=== PATIENT | male | born 2000 | race Caucasian/White ===

== ENCOUNTER 2020-08-25 20:47 | Emergency (ER) | payer OTHER, SELFPAY ==
[2020-08-25 20:49] VITALS: BP 147/72; PULSE 71; RESP 18; TEMP 36.6; O2SAT 98
--- NOTE | 2020-08-25 21:14 | ECG_ITS ---
Measurements Intervals [place] Rate: 75 P: 71 OR: 142 QRS: 97 QRSD: 101 T: 29 QT: 356 QTc: 399 Interpretive Statements SINUS RHYTHM WITH SINUS ARRHYTHMIA RIGHT AXIS DEVIATION BORDERLINE ST-T WAVE ABNORMALITY- INFERIOR LEADS BASELINE ARTIFACT- II, III, AVF BORDERLINE ECG Electronically Signed On 08-26-2020 7:11:47 [employer] [employer]ER by Jesse Greenfield D.O.
--- NOTE | 2020-08-25 21:15 | ED.ARRPALP ---
HPI - Arrhythmia/Palpitations General Chief Complaint: Arrhythmia/Palpitations Stated Complaint: Palpitations Time Seen by Provider: 08/25/20 20:59 Source: patient and family Mode of arrival: ambulatory Limitations: no limitations History of Present Illness HPI narrative: This patient is a 20 year old male who presents for evaluation of palpitations. Patient reports he has been having palpitations for 2-3 days. He describes a feeling of his heart pounding. Initially this was intermittently, but he reports over the past 5 hours it has been constant. He denies having the palpitations currently. He denies associated heart racing, chest pain, shortness or breath or dizziness. He also denies any other complaints. He started taking cipro 7 days ago for a foot infection but he stopped taking it 3 days ago. Related Data Home Medications Medication Instructions Recorded Confirmed dexlansoprazole [Dexilant] mg 08/25/20 Allergies Allergy/AdvReac Type Severity Reaction Status Date / Time No Known Allergies Allergy Verified 08/25/20 20:55 Review of Systems Review of Systems: All systems reviewed & are unremarkable except as noted in HPI and below Constitutional: Constitutional: Denies chills and Denies fever(s) Cardiovascular: Cardiovascular: Denies chest pain, Denies rapid heart rate and Denies radiating jaw, neck or arm pain Respiratory: Respiratory: Denies cough and Denies dyspnea Gastrointestinal: Gastrointestinal: Denies abdominal pain, Denies diarrhea, Denies nausea and Denies vomiting Neurologic: Denies headache(s) PMFSH Past Medical History Medical History (Updated 08/25/20 @ 22:59 by Yani Lyman MD) GERD (gastroesophageal reflux disease) Social History Social History (Updated 08/25/20 @ 21:19 by Yani Lyman MD) Smoking status: Never smoker Alcohol use details: occasionally Substance use: never Gender identity (if verbalized by the patient): Male Exam Narrative: Exam Narrative: GENERAL: Well-appearing, well-nourished, and in no acute distress. HEAD: Normocephalic, atraumatic EYES: PERRLA and EOMI, conjunctiva clear without discharge THROAT:Mucous membranes moist, Oropharynx normal without erythema, exudate, peritonsillar swelling or fluctuance NECK: Supple RESPIRATORY: No respiratory distress, Airway patent, Respirations non-labored, Clear to auscultation without rales, rhonchi or wheeze HEART: Regular rate and rhythm. No murmur heard. Normal peripheral pulses. ABDOMEN: Soft, nontender, nondistended, normal active bowel sounds. No masses. No rebound or guarding, No organomegaly. EXTREMITIES: No edema, normal strength with full range of motion. SKIN: Warm, dry, normal color without rash NEURO: Alert and oriented x3. CN 2-12 grossly intact. No focal deficits. PSYCH: Normal mood and affect. Course Reevaluation(s) Reevaluation #1: I discussed with patient and his mother that he will need to follow up with primary care physician for further evaluation. TSH is on high normal. Date: 08/25/20 Time: 22:57 Vital Signs Vital signs: Vital Signs Temperature 97.8 F 08/25/20 20:49 Pulse Rate 71 08/25/20 20:49 Respiratory Rate 18 08/25/20 20:49 Blood Pressure 147/72 H 08/25/20 20:49 Pulse Oximetry 98 08/25/20 20:49 Temperature 97.8 F 08/25/20 20:49 Pulse Rate 67 08/25/20 22:46 Respiratory Rate 18 08/25/20 22:46 Blood Pressure 127/72 08/25/20 22:46 Pulse Oximetry 97 08/25/20 22:46 MDM - Arrhythmia/Palpitations Lab Data Attestation: I reviewed the patient's lab results. Result diagrams: 08/25/20 21:25 08/25/20 21:24 Labs: Lab Results 08/25/20 08/25/20 08/25/20 Range/Units 21:24 21:25 21:25 WBC 8.8 (4.5-10.0) K/mm3 RBC 5.10 (4.6-6.20) M/mm3 Hgb 15.6 (14.0-18.0) g/dL Hct 45.0 (42.0-52.0) % MCV 88.2 (80-100) fl MCH 30.6 (26-34) pg MCHC 34.7 (32-36) g
[2020-08-25 21:31] LABS: Basophils Absolute Auto 0.1 K/mm3 (0.0-0.1); Basophils Percent Auto 0.7 % (0.2-1.2); Eosinophils Absolute Auto 0.2 K/mm3 (0-0.3); Eosinophils Percent Auto 2.3 % (0-4.4); Hemoglobin 15.6 g/dL (14.0-18.0); Immature Granulocyte Absolute 0.06 K/mm3 (0.00-0.031); Immature Granulocyte Percent A 0.7 % (0-0.5); Lymphocytes Absolute Auto 2.58 K/mm3 (0.9-3.2); Lymphocytes Percent Auto 29.4 % (18.3-44.2); Mean Corpuscular HGB Conc 34.7 g/dl (32-36); Mean Corpuscular Hemoglobin 30.6 pg (26-34); Mean Corpuscular Volume 88.2 fl (80-100); Mean Platelet Volume 9.7 fl (7.4-10.4); Monocytes Absolute Auto 0.6 K/mm3 (0.1-0.6); Monocytes Percent Auto 7.1 % (2.6-8.5); Neutrophils Absolute Auto 5.3 K/mm3 (1.3-6.7); Neutrophils Percent Auto 59.8 % (45.5-73.1); Platelet Count Result 263 k/mm3 (150-375); Red Cell Distribution Width 12.7 % (11.5-14.5); White Blood Count 8.8 K/mm3 (4.5-10.0)
[2020-08-25 21:44] LABS: Alanine Aminotransferase 21 U/L (4-50); Albumin Level 4.6 g/dL (3.5-5.1); Alkaline Phosphatase 66 U/L (38-126); Anion Gap 8 mmol/L (8-16); Aspartate Amino Transferase 28 U/L (17-59); Bilirubin,Total 0.6 mg/dL (0.2-1.3); Blood Urea Nitrogen 13 mg/dL (9-20); Calcium 9.4 mg/dL (8.4-10.2); Carbon Dioxide 30 mmol/L (22-30); Chloride 105 mmol/L (98-107); Estimated CRCL calculation 118 ml/min; Estimated Glomerular Filt Rate > 60; Glucose 103 mg/dL (75-110); Sodium 143 mmol/L (137-145)
[2020-08-25 21:44] LABS: Magnesium 1.8 mg/dL (1.6-2.3)
[2020-08-25 22:46] VITALS: BP 127/72; PULSE 67; RESP 18; O2SAT 97
[2020-08-25 22:55] LABS: Amphetamine Screen Urine Negative (Negative); Barbiturate Screen Urine Negative (Negative); Benzodiazepines Screen Urine Negative (Negative); Cannabinoid Screen Urine Negative (Negative); Cocaine Screen Urine Negative (Negative); Methadone Screen Urine Negative (Negative); Opiate Screen Urine Negative (Negative); Phencyclidine Screen Urine Negative (Negative)
[2020-08-25 23:18] LABS: Free T4 Free Thyroxine Reflex 0.89 ng/dL (0.78-2.19)
[2020-08-25 23:58] LABS: Total Triiodothyronine (T3) 1.53 NG/ML (0.97-1.69)
== END 2020-08-26 02:00 | disposition home or self-care (01) ==
PROVIDERS: Emergency Provider General Practice
DX: R00.2 Palpitations (principal); K21.9 Gastro-esophageal reflux disease without esophagitis; R94.31 Abnormal electrocardiogram [ECG] [EKG]
CPT/HCPCS: 36415; 80053; 80307; 83735; 84439; 84443; 84480; 85025; 93005; 99283